=== PATIENT | male | born 1940 | race Caucasian/White ===

== ENCOUNTER 2020-12-30 20:48 | Inpatient (IN) | payer OTHER ==
[~2020-12-30] VITALS: Ht 172.7 cm; Wt 89.2 kg
[2020-12-30] MEDS ORDERED: SODIUM CHLORIDE 0.9% 1,000 ML IV ONE (21:15)
[2020-12-30 22:04] LABS: Hematocrit 40.4 % (41.0-53.0); Hemoglobin 13.9 g/dL (13.5-17.5); Mean Corpuscular Hemoglobin 30.6 pg (28.0-32.0); Mean Corpuscular Hgb Conc. 34.4 g/dL (32.0-36.0); Red Blood Cells 4.54 10^6/uL (4.5-5.90); Red Cell Distribution Width 18.4 % (11.8-14.3); White Blood Cell 9.8 10^3/uL (4.4-10.8)
[2020-12-30 22:09] LABS: Basophils % (manual) 0 (0.0-2.0); Blast Cells 0; Metamyelocytes % 0; Myelocytes % 0; Promyelocytes % 0; Reactive Lymphocytes 0
[2020-12-30 22:29] LABS: Albumin 2.4 g/dL (3.4-5.0); Calcium 9.9 mg/dL (8.5-10.1); Potassium 3.5 mmol/L (3.5-5.1)
[2020-12-30 22:37] LABS: Bilirubin, Direct 18.8 mg/dL (0-0.2); Total Protein 6.8 g/dL (6.4-8.2)
[2020-12-30 23:02] LABS: INR 1.09 (0.9-1.15); Partial Thromboplastin Time 27.7 sec (23.6-33.0)
[2020-12-30 23:18] LABS: Band Neutrophils % (manual) 2; Eosinophils % (manual) 1 (0-7); Lymphocytes % (manual) 11 (10.0-50.0); Monocytes % (manual) 7 (0-12)
[2020-12-30 23:24] LABS: Lactic Acid w/Reflex 2.2 mmol/L (0.4-2.0)
[2020-12-31] MEDS ORDERED: IOHEXOL 300 MG/ML 100ML BOTTLE IJ ONE (00:58)
[2020-12-31 02:12] LABS: Urine Bacteria FEW /hpf (None Seen); Urine Blood Negative /uL (Negative); Urine Hyaline Cast FEW /lpf (0 - 2); Urine Mucus FEW (None Seen); Urine Specific Gravity 1.036 (1.001-1.035); Urine WBC 5 /hpf (0 - 3)
[2020-12-31] MEDS ORDERED: hydrALAZINE HCL 20 MG/ML VL IV PRN (03:30)
[2020-12-31] MEDS ORDERED: ACETAMINOPHEN 325 MG TAB PO PRN (03:30)
[2020-12-31] MEDS ORDERED: MORPHINE SULFATE INJECTION 2 MG/ML SYRG IV PRN (03:30)
[2020-12-31] MEDS ORDERED: ONDANSETRON HCL 4 MG/2 ML VIAL IV PRN (03:30)
[2020-12-31] MEDS ORDERED: NITROGLYCERIN 0.4 MG SL TAB SL PRN (03:30)
[2020-12-31] MEDS ORDERED: DEXTROSE (50%) 50ML SYRG IV PRN (03:30)
[2020-12-31] MEDS ORDERED: HYDROcodone-ACET 5/325MG TAB PO PRN (03:30)
[2020-12-31 08:24] LABS: Hematocrit 37.4 % (41.0-53.0); Hemoglobin 12.8 g/dL (13.5-17.5); Mean Corpuscular Hemoglobin 30.5 pg (28.0-32.0); Mean Corpuscular Hgb Conc. 34.1 g/dL (32.0-36.0); Mean Corpuscular Volume 89.6 fL (80.0-100.0); Red Blood Cells 4.18 10^6/uL (4.5-5.90); Red Cell Distribution Width 18.7 % (11.8-14.3); White Blood Cell 8.5 10^3/uL (4.4-10.8)
[2020-12-31 08:40] LABS: Band Neutrophils % (manual) 0; Basophils % (manual) 0 (0.0-2.0); Blast Cells 0; Metamyelocytes % 0; Myelocytes % 0; Promyelocytes % 0; Reactive Lymphocytes 0
[2020-12-31 08:41] LABS: Albumin 2.2 g/dL (3.4-5.0); Calcium 9.3 mg/dL (8.5-10.1); Potassium 3.7 mmol/L (3.5-5.1)
[2020-12-31 08:45] LABS: BUN/Creatinine Ratio 15.5; Total Protein 6.3 g/dL (6.4-8.2)
[2020-12-31 09:00] VITALS: BP 135/69
[2020-12-31] MEDS: SODIUM CHLORIDE 0.9% 1,000 ML IV SCH ×2 (09:00→20:10)
[2020-12-31] MEDS: cefTRIAXone 1GM/50ML D5W 50 ML IV SCH (09:00)
[2020-12-31 09:26] LABS: Eosinophils % (manual) 1 (0-7); Lymphocytes % (manual) 15 (10.0-50.0); Monocytes % (manual) 4 (0-12)
[2020-12-31] MEDS: FAMOTIDINE (10MG/ML) 2ML VL IV SCH ×2 (09:45→21:49)
[2020-12-31] MEDS: ENOXAPARIN SOD 40 MG/0.4 ML SYRINGE SC SCH (09:48)
[2020-12-31] MEDS ORDERED: LISI40TA11 PO (09:53)
[2020-12-31] MEDS ORDERED: AMLO-489 PO (09:53)
[2020-12-31] MEDS ORDERED: GLIP10TA9 PO (09:53)
[2020-12-31] MEDS ORDERED: METO-158 PO (09:53)
[2020-12-31] MEDS ORDERED: SIMV10TA84 PO (09:53)
[2020-12-31] MEDS: InsuLIN REG 1unit/0.01ml Soln (100units/ml) SC SCH ×3 (11:18→21:53)
[2020-12-31] MEDS: ACCU-CHEK COMFORT CURVE STRIP VI SCH ×3 (11:20→21:50)
[2020-12-31] MEDS ORDERED: diphenhdrAMINE HCL 25 MG CAP PO PRN (11:45)
[2020-12-31 13:00] VITALS: BP 106/70
[2020-12-31 17:00] VITALS: BP 114/62
[2020-12-31 20:00] VITALS: BP 143/67
[2020-12-31 22:00] VITALS: BP 143/67
[2020-12-31] MEDS: CHOLESTYRAMINE 4 GM POWDER GT SCH (23:02)
[2021-01-01 05:00] VITALS: BP 154/63
[2021-01-01 05:58] LABS: Hematocrit 34.8 % (41.0-53.0); Hemoglobin 12.4 g/dL (13.5-17.5); Mean Corpuscular Hemoglobin 31.5 pg (28.0-32.0); Mean Corpuscular Hgb Conc. 35.6 g/dL (32.0-36.0); Mean Corpuscular Volume 88.5 fL (80.0-100.0); Red Blood Cells 3.94 10^6/uL (4.5-5.90); Red Cell Distribution Width 18.8 % (11.8-14.3); White Blood Cell 7.5 10^3/uL (4.4-10.8)
[2021-01-01 06:20] LABS: Potassium 3.3 mmol/L (3.5-5.1)
[2021-01-01 06:24] LABS: BUN/Creatinine Ratio 17.9; Calcium 8.5 mg/dL (8.5-10.1); Magnesium 2.1 mg/dL (1.6-2.6)
[2021-01-01 06:37] LABS: Bilirubin, Total 17.6 mg/dL (0.2-1.0); Total Protein 5.8 g/dL (6.4-8.2)
[2021-01-01 06:45] LABS: Band Neutrophils % (manual) 0; Basophils % (manual) 0 (0.0-2.0); Blast Cells 0; Metamyelocytes % 0; Myelocytes % 0; Promyelocytes % 0; Reactive Lymphocytes 0
[2021-01-01] MEDS: ACCU-CHEK COMFORT CURVE STRIP VI SCH ×4 (06:47→22:13)
[2021-01-01] MEDS: InsuLIN REG 1unit/0.01ml Soln (100units/ml) SC SCH ×5 (06:48→22:30)
[2021-01-01 07:40] LABS: Eosinophils % (manual) 1 (0-7); Lymphocytes % (manual) 12 (10.0-50.0); Monocytes % (manual) 7 (0-12)
[2021-01-01 08:00] VITALS: BP 160/67
[2021-01-01 09:46] VITALS: BP 160/67
[2021-01-01] MEDS ORDERED: POTASSIUM CHL 20 Meq TABLET PO ONE (12:15)
[2021-01-01] MEDS: SODIUM CHLORIDE 0.9% 1,000 ML IV SCH (12:50)
[2021-01-01] MEDS: cefTRIAXone 1GM/50ML D5W 50 ML IV SCH (13:22)
[2021-01-01] MEDS: ENOXAPARIN SOD 40 MG/0.4 ML SYRINGE SC SCH (13:29)
[2021-01-01] MEDS: FAMOTIDINE (10MG/ML) 2ML VL IV SCH ×2 (13:29→21:34)
[2021-01-01] MEDS: CHOLESTYRAMINE 4 GM POWDER GT SCH ×2 (13:29→23:04)
[2021-01-01 14:39] LABS: Hepatitis A Ab IgM Negative; Hepatitis B Core IgM Negative; Hepatitis B Surface Antigen Negative (Negative)
[2021-01-01 14:40] LABS: Hepatitis C Antibody Negative (Negative)
[2021-01-01 22:00] VITALS: BP 145/73
[2021-01-02 05:00] VITALS: BP 136/64
[2021-01-02 06:19] LABS: Potassium 3.4 mmol/L (3.5-5.1)
[2021-01-02 06:45] LABS: Albumin 2.1 g/dL (3.4-5.0); Bilirubin, Total 16.1 mg/dL (0.2-1.0); Calcium 8.8 mg/dL (8.5-10.1); Total Protein 5.9 g/dL (6.4-8.2)
[2021-01-02] MEDS: ACCU-CHEK COMFORT CURVE STRIP VI SCH ×4 (07:02→21:48)
[2021-01-02] MEDS: InsuLIN REG 1unit/0.01ml Soln (100units/ml) SC SCH ×4 (07:35→22:21)
[2021-01-02] MEDS: SODIUM CHLORIDE 0.9% 1,000 ML IV SCH (07:40)
[2021-01-02 08:00] VITALS: BP 162/73
[2021-01-02 09:00] VITALS: BP 142/69
[2021-01-02] MEDS: CHOLESTYRAMINE 4 GM POWDER GT SCH ×2 (11:00→22:23)
[2021-01-02] MEDS: cefTRIAXone 1GM/50ML D5W 50 ML IV SCH (11:43)
[2021-01-02] MEDS: FAMOTIDINE (10MG/ML) 2ML VL IV SCH ×2 (11:43→22:15)
[2021-01-02] MEDS: ENOXAPARIN SOD 40 MG/0.4 ML SYRINGE SC SCH (11:45)
[2021-01-02 13:00] VITALS: BP 149/72
[2021-01-02 16:43] VITALS: BP 116/67
[2021-01-02 22:00] VITALS: BP 130/89
[2021-01-03 05:00] VITALS: BP 127/65
[2021-01-03] MEDS: ACCU-CHEK COMFORT CURVE STRIP VI SCH ×4 (06:42→21:11)
[2021-01-03] MEDS: InsuLIN REG 1unit/0.01ml Soln (100units/ml) SC SCH ×4 (06:44→21:23)
[2021-01-03 09:00] VITALS: BP 135/76
[2021-01-03] MEDS: FAMOTIDINE (10MG/ML) 2ML VL IV SCH ×2 (09:49→21:11)
[2021-01-03] MEDS: ENOXAPARIN SOD 40 MG/0.4 ML SYRINGE SC SCH (09:49)
[2021-01-03] MEDS: CHOLESTYRAMINE 4 GM POWDER GT SCH ×2 (11:54→22:20)
[2021-01-03 13:00] VITALS: BP 148/76
[2021-01-03] MEDS: SODIUM CHLORIDE 0.9% 1,000 ML IV SCH ×2 (16:12)
[2021-01-03 16:48] VITALS: BP 141/75
[2021-01-03 22:00] VITALS: BP 134/72
[2021-01-04 05:00] VITALS: BP 145/74
[2021-01-04] MEDS: InsuLIN REG 1unit/0.01ml Soln (100units/ml) SC SCH ×4 (06:25→21:46)
[2021-01-04] MEDS: ACCU-CHEK COMFORT CURVE STRIP VI SCH ×4 (06:25→21:41)
[2021-01-04] MEDS: SODIUM CHLORIDE 0.9% 1,000 ML IV SCH (07:30)
[2021-01-04 09:00] VITALS: BP 145/72
[2021-01-04] MEDS: CHOLESTYRAMINE 4 GM POWDER GT SCH ×2 (11:58→23:50)
[2021-01-04] MEDS: ENOXAPARIN SOD 40 MG/0.4 ML SYRINGE SC SCH (11:58)
[2021-01-04] MEDS: FAMOTIDINE (10MG/ML) 2ML VL IV SCH ×2 (11:58→21:41)
[2021-01-04 13:00] VITALS: BP 129/65
[2021-01-04 17:00] VITALS: BP 144/79
[2021-01-04 22:00] VITALS: BP 124/71
[2021-01-05] MEDS: SODIUM CHLORIDE 0.9% 1,000 ML IV SCH ×2 (01:06→16:50)
[2021-01-05 05:00] VITALS: BP 135/65
[2021-01-05] MEDS: ACCU-CHEK COMFORT CURVE STRIP VI SCH ×4 (06:12→22:00)
[2021-01-05] MEDS: InsuLIN REG 1unit/0.01ml Soln (100units/ml) SC SCH ×4 (06:13→22:00)
[2021-01-05 06:57] LABS: Hematocrit 37.7 % (41.0-53.0); Hemoglobin 13.3 g/dL (13.5-17.5); Mean Corpuscular Hgb Conc. 35.2 g/dL (32.0-36.0); Mean Corpuscular Volume 88.1 fL (80.0-100.0); Red Blood Cells 4.28 10^6/uL (4.5-5.90); Red Cell Distribution Width 18.9 % (11.8-14.3); White Blood Cell 6.1 10^3/uL (4.4-10.8)
[2021-01-05 06:58] LABS: Basophils % (manual) 0 (0.0-2.0); Blast Cells 0; Metamyelocytes % 0; Myelocytes % 0; Promyelocytes % 0; Reactive Lymphocytes 0
[2021-01-05 07:37] LABS: Band Neutrophils % (manual) 1; Eosinophils % (manual) 3 (0-7); Lymphocytes % (manual) 11 (10.0-50.0); Monocytes % (manual) 9 (0-12)
[2021-01-05 08:00] VITALS: BP 149/71
[2021-01-05] MEDS: FAMOTIDINE (10MG/ML) 2ML VL IV SCH ×2 (10:59→23:02)
[2021-01-05] MEDS: CHOLESTYRAMINE 4 GM POWDER GT SCH ×2 (11:00→23:00)
[2021-01-05] MEDS: ENOXAPARIN SOD 40 MG/0.4 ML SYRINGE SC SCH (11:00)
[2021-01-05 12:00] VITALS: BP 153/65
[2021-01-05 17:00] VITALS: BP 148/81
[2021-01-05 22:17] VITALS: BP 149/81
[2021-01-06] MEDS: InsuLIN REG 1unit/0.01ml Soln (100units/ml) SC SCH ×3 (05:45→17:00)
[2021-01-06] MEDS: ACCU-CHEK COMFORT CURVE STRIP VI SCH ×3 (05:46→17:00)
[2021-01-06 05:54] VITALS: BP 133/69
[2021-01-06 07:26] LABS: Albumin 1.9 g/dL (3.4-5.0); Calcium 8.5 mg/dL (8.5-10.1); Potassium 3.4 mmol/L (3.5-5.1)
[2021-01-06 07:31] LABS: BUN/Creatinine Ratio 12.9; Bilirubin, Total 18.2 mg/dL (0.2-1.0)
[2021-01-06 07:37] VITALS: BP 124/67
[2021-01-06] MEDS: SODIUM CHLORIDE 0.9% 1,000 ML IV SCH (09:30)
[2021-01-06] MEDS: ENOXAPARIN SOD 40 MG/0.4 ML SYRINGE SC SCH (10:00)
[2021-01-06] MEDS: FAMOTIDINE (10MG/ML) 2ML VL IV SCH (10:00)
[2021-01-06] MEDS: CHOLESTYRAMINE 4 GM POWDER GT SCH (11:00)
[2021-01-07] MEDS: InsuLIN REG 1unit/0.01ml Soln (100units/ml) SC SCH (07:00)
[2021-01-07] MEDS: ENOXAPARIN SOD 40 MG/0.4 ML SYRINGE SC SCH (10:00)
== END 2021-01-07 08:55 | disposition short-term general hospital (02) | DRG 446 ==
LOC: ER 20:51 → TELE-WESTW 12-31 03:41 → ER 12-31 05:54 → TELE-WESTW 12-31 05:54
PROVIDERS: ADMIT Nurse Practitioner Family; ATTEND Internal Medicine
DX: K80.71 Calculus of gallbladder and bile duct without cholecystitis with obstruction (principal); Z20.822 Contact with and (suspected) exposure to COVID-19; E80.6 Other disorders of bilirubin metabolism; E88.09 Other disorders of plasma-protein metabolism, not elsewhere classified; R16.0 Hepatomegaly, not elsewhere classified; E11.65 Type 2 diabetes mellitus with hyperglycemia; R74.01 Elevation of levels of liver transaminase levels; I10 Essential (primary) hypertension; E78.5 Hyperlipidemia, unspecified; E78.00 Pure hypercholesterolemia, unspecified; Z81.1 Family history of alcohol abuse and dependence; Z84.89 Family history of other specified conditions; Z79.899 Other long term (current) drug therapy
CPT/HCPCS: 36415; 71045; 74177; 74181; 76705; 80053; 80074; 81001; 82248; 82962; 83036; 83605; 83690; 83735; 85007; 85027; 85610; 85730; 86301; 86850; 86900; 86901; 87040; 87426; 96361; 96365; 96372; G0378; J0696; J1815; J3490